=== PATIENT | female | born 2000 | race Caucasian/White ===

== ENCOUNTER 2024-04-21 06:29 | Emergency (ER) | payer OTHER ==
--- NOTE | 2024-04-21 07:25 | ERPHSYRPT ---
- History of Present Illness Time Seen by Provider: 04/21/24 07:15 Source: patient Exam Limitations: no limitations Patient Subjective Stated Complaint: fell down the camper stairs and landed on my wrist Triage Nursing Assessment: pt ambulated into ER without diff, significant other at bedside. Pt c/o rt wrist/thumb pain after falling down the camper stairs around 0530 this morning and landing on her wrist. Rt thumb pad is swollen and bruised. Pt is able to move her wrist and her fingers. Rt Radial pulse strong. Physician History: 23yo f presents via private vehicle for right wrist pain. Pt states she fell forward down 2 stairs while walking out of her camper roughly 1h [employer]. Pt states most of her pain is over the thenar eminence, has full ROM and full strength in right hand/wrist. Pt reports the pain is manageable, has not taken any medication. 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 Pt did not hit head during fall, has no other concerns today. Occurred: this morning Method of Injury: fell Quality: aching Severity of Pain-Max: mild Severity of Pain-Current: mild Extremities Pain Location: wrist: right, hand: right Modifying Factors: Improves With: immobilization Associated Symptoms: none Allergies/Adverse Reactions: adhesive tape Allergy (Intermediate, Verified 04/21/24 06:51) Home Medications: No Reportable Medications [No Reported Medications] 04/21/24 [History] Hx Tetanus, Diphtheria Vaccination/Date Given: Yes Hx Influenza Vaccination/Date Given: No Hx Pneumococcal Vaccination/Date Given: No Travel Risk - International Travel Have you traveled outside of the country in past 3 weeks: No - Emerging Infectious Disease Are you exhibiting symptoms associated with any current EIDs: No - Review of Systems Constitutional: No Symptoms Respiratory: No Symptoms Cardiac: No Symptoms Musculoskeletal: Injury, Joint Pain - Past Medical History Pertinent Past Medical History: Yes Neurological History: No Pertinent History ENT History: No Pertinent History Cardiac History: No Pertinent History Respiratory History: No Pertinent History Endocrine Medical History: No Pertinent History Musculoskeletal History: No Pertinent History GI Medical History: No Pertinent History History: No Pertinent History Psycho-Social History: No Pertinent History Female Reproductive Disorders: Other Other Medical History: anemic, cyst to ovary. uti/kidney infection - Past Surgical History Past Surgical History: Yes Neuro Surgical History: No Pertinent History Cardiac: No Pertinent History Respiratory: No Pertinent History Gastrointestinal: No Pertinent History Genitourinary: No Pertinent History Musculoskeletal: No Pertinent History Female Surgical History: Other Other Surgical History: cyst ruptured to ovary - Female History Hx Last Menstrual Period: 2 weeks ago Hx Now: No - Social History Smoking Status: Current every day smoker Exposure to second hand smoke: Yes Drug Use: none - Social Determinants of Health Will the patient participate in the screening: Yes Do you worry about a steady place to live?: No Do you have any problems with any of the following?: No known problems In the past 12 months,have you had to go without utilities?: No Transportation Issues: No Has anyone in your support network made you feel unsafe?: No Have you or anyone in your house had to go without enough: No - Nursing Vital Signs Nursing Vital Signs: Initial Vital Signs Temperature 99.7 F 04/21/24 06:36 Pulse Rate 97 H 04/21/24 06:36 Respiratory Rate 16 04/21/24 06:36 Blood Pressure 102/70 04/21/24 06:36 O2 Sat by Pulse Oximetry 100 04/21/24 06:36 Pain Scale Pain Intensity 4 - Physical Exam General Appearance: no apparent distress, alert Cardiovascular/Respiratory Exam: chest non-tender, normal breath sounds, heart sounds normal Shoulder Exam: normal inspection Elbow/Forearm Exam: normal inspection Wrist Exam: no evidence of injury, normal ROM, soft tissue tenderness (minimal), No abrasions, No asymmetry, No bone tenderness, No deformity, No ecchymosis, No swelling Hand Exam: normal inspection, no evidence of injury, normal ROM, soft tissue tenderness (minimal over thenar eminence), No laceration, No limited ROM, No nail injury Neuro/Tendon Exam: normal sensation, normal motor functions, normal tendon functions, responds to pain, no evidence tendon injury, No motor deficit, No sensory deficit SpO2 Interpretation: normal SpO2: 100 O2 Delivery: Room Air Ordered Tests: Active Orders 24 hr Category Date Time Status HAND (MINIMUM 3 VIEWS) Stat Exams 04/21/24 07:02 Taken WRIST (MIN 3 VIEWS) Stat Exams 04/21/24 06:50 Taken - Progress Progress: re-examined Progress Note: 04/21/24 07:27 xr wrist and hand not suggestive of acute fracture likely sprain of right wrist instructed to use ice/ibuprofen/tylenol for pain control given firm wrist splint to be warn during work for added support return to ED if: develop unbearable pain, become unable to use the right hand, develop numbness/discoloration of right hand Counseled pt/family regarding: diagnosis, rad results Medical Desision Making - Diagnostic Testing Diagnostic test were ordered, analyzed, and reviewed by me: Yes Radiological Interpretation: Interpreted by me, Reviewed by me - Risk of complications Minimal Risk: Minimal risk of morbidity - Departure Departure Disposition: Home Clinical Impression: Right wrist sprain Qualifiers: Encounter type: initial encounter Qualified Code(s): S63.501A - Unspecified sprain of right wrist, initial encounter Condition: Stable Critical Care Time: No Additional Instructions: xr wrist and hand not suggestive of acute fracture likely sprain of right wrist instructed to use ice/ibuprofen/tylenol for pain control given firm wrist splint to be warn during work for added support return to ED if: develop unbearable pain, become unable to use the right hand, develop numbness/discoloration of right hand
[2024-04-21 07:30] VITALS: PULSE 97; RESP 16; TEMP 99.7; O2SAT 100
--- NOTE | 2024-04-21 07:35 | XRAY ---
Indication: Pain following fall. Comparison: None 3 view right hand obtained. No bony, articular, or soft tissue abnormalities.
--- NOTE | 2024-04-21 07:35 | XRAY ---
Indication: Pain following fall. Comparison: None 3 view right wrist obtained. No bony, articular, or soft tissue abnormalities.
[2024-04-21 07:45] VITALS: BP 97/61
== END 2024-04-21 07:48 | disposition home or self-care (01) ==
LOC: ED 06:29
DX: S63.501A Unspecified sprain of right wrist, initial encounter (principal); W10.8XXA Fall (on) (from) other stairs and steps, initial encounter; Z72.0 Tobacco use
CPT/HCPCS: 73110; 73130; 99282; L3908